=== PATIENT | female | born 1985 ===

== ENCOUNTER 2017-10-19 19:16 | Emergency (ER) | payer BC, MEDICAID ==
[2017-10-19 19:52] VITALS: RESP 16; O2SAT 100
[2017-10-19] MEDS ORDERED: Morphine 4 MG/ML VIAL IVP ONE (20:20)
--- NOTE | 2017-10-19 20:46 | ED PDOC ---
"HPI: Abdomen Time Seen by Provider: 10/19/17 20:44 Chief Complaint (Nursing): Abdominal Pain Chief Complaint (Provider): Abdominal Pain History Per: Patient History/Exam Limitations: no limitations Onset/Duration Of Symptoms: Hrs (6) Outside of [place] travel?: No Current Symptoms Are (Timing): Still Present Severity: Moderate Pain Scale Rating Of: 4 Location Of Pain/Discomfort: RLQ, LLQ, Suprapubic Quality Of Discomfort: Sharp, Cramping Associated Symptoms: Fever, Chills, Vomiting, Back Pain. denies: Diarrhea, Loss Of Appetite, Chest Pain, Constipation, Urinary Symptoms Exacerbating Factors: None Alleviating Factors: None Last Bowel Movement: Today Last Menstral Period: September sometime Past Medical History Vital Signs: Last Vital Signs Temp 100.3 F H 10/19/17 22:25 Pulse 118 H 10/19/17 19:51 Resp 16 10/19/17 19:51 BP 119/79 10/19/17 19:51 Pulse Ox 100 10/20/17 00:54 - Family History Family History: States: No Known Family Hx - Allergies Allergies/Adverse Reactions: Allergies Allergy/AdvReac Type Severity Reaction Status Date / Time No Known Allergies Allergy Verified 10/19/17 19:50 Review of Systems Constitutional: Positive for: Fever, Chills Gastrointestinal: Positive for: Nausea, Vomiting, Abdominal Pain. Negative for : Diarrhea, Constipation, Hematochezia, Hematemesis Genitourinary Female: Positive for: Pelvic Pain Physical Exam - Reviewed Nursing Documentation Reviewed: Yes Vital Signs Reviewed: Yes - Physical Exam Appears: Positive for: Uncomfortable Head Exam: Positive for: ATRAUMATIC, NORMAL INSPECTION, NORMOCEPHALIC Neck: Positive for: Normal, Painless ROM, Supple Cardiovascular/Chest: Positive for: Chest Non Tender, Tachycardia (regular rythmn). Negative for: Edema, Gallop Respiratory: Positive for: Normal Breath Sounds. Negative for: Accessory Muscle Use, Crackles, Rales, Rhonchi, Stridor, Wheezing, Respiratory Distress Pulses-Carotid (L): 2+ Pulses-Carotid (R): 2+ Pulses-Dorsalis Pedis (L): 2+ Pulses-Dorsalis Pedis (R): 2+ Pulses-Radial (L): 2+ Pulses-Radial (R): 2+ Gastrointestinal/Abdominal: Positive for: Bowel Sounds, Tenderness (right upper and right lower quadrant tnderness; tender at [place] point with positive rovsing and merckle signs), Rebound. Negative for: Distended, Guarding, Asicites - Laboratory Results Result Diagrams: 10/19/17 21:44 10/19/17 21:44 - ECG O2 Sat by Pulse Oximetry: 100 - Progress ED Course And Treament: fluids ct abdomen and pelvis morphine 4mg reglan 10mg cbc cmp liver eval lipase ua Medical Decision Making Medical Decision Making: R/o acute abdomen >> gas Consult with Dr Jose Lopez indicated that the patient should be discharged with close follow up with her EXTRUSION PRESS OPERATOR CT EXAM: CT Abdomen and Pelvis With Intravenous Contrast CLINICAL HISTORY: 32 years old, female; Pain; Abdominal pain; Acute; Additional info: R/O acute abdomen TECHNIQUE: Axial computed tomography images of the abdomen and pelvis with intravenous contrast. All CT scans at this facility use one or more dose reduction techniques, viz.: automated exposure control; ma/kV adjustment per patient size (including targeted exams where dose is matched to indication; i.e. head); or iterative reconstruction technique. Coronal and sagittal reformatted images were created and reviewed. CONTRAST: 95 mL of OMNIPAQUE-300 administered intravenously. COMPARISON: No relevant prior studies available. FINDINGS: Limitations: Motion artifact - mild. Lower thorax: No acute findings. ABDOMEN: Liver: < 0.5 cm lesion. Gallbladder and bile ducts: No calcified stones. No ductal dilation. Pancreas: No ductal dilation. No mass. Spleen: No splenomegaly. Adrenals: No mass. Kidneys and ureters: No mass. No hydronephrosis. Stomach and bowel: No definite mural thickening. No obstruction. Appendix: Borderline enlarged appendix, 6-7 mm in diameter. No definite associated inflammatory stranding. PELVIS: Bladder: Unremarkable. Reproductive: Retroverted uterus. IUD. 2.6 x 1.8 x 2.4 cm hypodense lesion within RIGHT ovary. ABDOMEN and PELVIS: SAVI ROBERTS | Final Radiology Report CONFIDENTIALITY STATEMENT This report is intended only for use by the referring physician, and only in accordance with law. If you received this in error, call [phone]. Page 2 of 2 Intraperitoneal space: No significant fluid collection. No free air. Bones/joints: Probable bone islands. No acute fracture. Mild disc bulges lower lumbar spine. Soft tissues: Tiny umbilical hernia containing fat. Vasculature: Unremarkable. No aneurysm. Lymph nodes: No pathologically enlarged lymph nodes. IMPRESSION: 1. Probable RIGHT ovarian cyst. Consider ultrasound. 2. Borderline enlarged appendix. No definite inflammation. Clinical correlation is needed. 3. Liver lesion. For patients with low to average risk of malignancy, no further follow-up is necessary. For patients with high risk of malignancy (known malignancy that can metastasize or other risk factors), recommend follow-up abdominal CT or MR in 6 months. 4. Incidental/non-acute findings are described above. Thank you for allowing us to participate in the care of your patient. Dictated and Authenticated by: Clay Hernandez MD 10/19/2017 11:01 PM Eastern Time ([place] & [place]) [facility] Preliminary Radiology Report Call: [phone] assistance Online chat: [email or web address] Patient Name: SAVI ROBERTS (Age): 1985 32 Gender: F Date of Exam: 10/19/2017 Referring Physician: Dieudonne Weaver # of Images: 38 Ordered As: US TRANSVAGINAL NON-OB INTERNAL REVENUE AGENT (QA) DISCREPANCY? If there is a discrepancy between the preliminary and final interpretation, please notify [employer] via [email or web address]. If you do not have access to our QA portal, call our QA team at [phone] CONFIDENTIALITY STATEMENT This report is intended only for the use of the referring physician, and only in accordance with law, If you received this in error, call [phone] Page 1 of 1 EXAM: US Pelvis, Transvaginal CLINICAL HISTORY: 32 years old, female; Pain; Pelvic pain; Additional info: R/O torsion, ruptured cyst TECHNIQUE: Real-time transvaginal pelvic ultrasound (complete) with image documentation. Transvaginal imaging was used for better evaluation of the endometrium and adnexa. COMPARISON: CT - ABD PELVIS IV CONTRAST ONLY 2017-10-19 22:35 FINDINGS: Uterus/cervix: Retroverted uterus. No myometrial mass. Endometrium: 0.3 cm in thickness. IUD in place. Right ovary: 2.5 x 2.7 x 2.3 cm anechoic lesion. Normal flow. Left ovary: No mass. Normal flow. Free fluid: Small free fluid within pelvis. IMPRESSION: 1. No definite sonographic evidence of ovarian torsion. 2. RIGHT ovarian cyst. 3. Incidental/non-acute findings are described above. Thank you for allowing us to participate in the care of your patient. Dictated and Authenticated by: Clay Hernandez MD 10/20/2017 12:12 AM Eastern Time ([place] & [place]) Disposition - Clinical Impression Clinical Impression: Ovarian cyst - Patient ED Disposition Is Patient to be Admitted: No Doctor Will See Patient In The: Office Counseled Patient/Family Regarding: Studies Performed, Diagnosis, Need For Followup, Rx Given - Disposition Referrals: [facility] [Outside] Nanette Al MD [Non-Staff] - Disposition: Routine/Home Disposition Time: 00:59 Condition: GOOD Additional Instructions: Follow up with your Primary physician, or the health clinic referred to you below Follow up with your EXTRUSION PRESS OPERATOR, or the health clinic referred to anmol manuel Forms: [employer] (Serbian)"
[2017-10-19] MEDS ORDERED: Morphine 4 MG/ML VIAL ONE (21:18)
[2017-10-19] MEDS: Sodium Chloride 0.9% 1,000 ML IV SCH ×3 (21:34→22:57)
[2017-10-19 21:55] LABS: BASO % 0.4 % (0.0-2.0); EOS % 0.2 % (0.0-4.0); HEMOGLOBIN 13.7 g/dL (12.0-16.0); LYMPH # 1.4 K/uL (1.0-4.3); LYMPH % 14.2 % (20.0-40.0); MEAN CELL VOLUME 87.7 fl (81.0-99.0); MEAN CORPUSCULAR HEMOGLOBIN 29.6 pg (27.0-31.0); MEAN CORPUSCULAR HGB CONC 33.8 g/dL (33.0-37.0); MEAN PLATELET VOLUME 9.4 fl (7.2-11.7); MONO # 0.7 K/uL (0.0-0.8); MONO % 7.1 % (0.0-10.0); NEUT % 78.1 % (50.0-75.0); NRBC % 0.1 % (0.0-0.0); RBC 4.64 Mil/uL (3.80-5.20); RED CELL DISTRIBUTION WIDTH 13.5 % (11.5-14.5); WHITE BLOOD COUNT 10.2 K/uL (4.8-10.8)
[2017-10-19 21:56] LABS: SQUAMOUS EPITHIAL 4 /hpf (0-5); URINE BACTERIA OCC (<OCC); URINE BILIRUBIN NEGATIVE (NEGATIVE); URINE BLOOD NEGATIVE (NEGATIVE); URINE CLARITY SLIGHTY-CLOUDY (Clear); URINE COLOR YELLOW (YELLOW); URINE GLUCOSE (UA) NEG (Normal); URINE LEUKOCYTE ESTERASE NEG Leu/uL (Negative); URINE PROTEIN NEGATIVE (NEGATIVE)
[2017-10-19 22:02] LABS: ALB/GLOB RATIO 1.1 (1.0-2.1); ALBUMIN 4.2 g/dL (3.5-5.0); ALT/SGPT 30 U/L (9-52); AST/SGOT 18 U/L (14-36); BILIRUBIN,DIRECT 0.3 mg/ml (0.0-0.4); BLOOD UREA NITROGEN 9 mg/dl (7-17); CALCIUM 9.5 mg/dL (8.4-10.2); GFR AFRICAN-AMERICAN > 60; GFR NON-AFRICAN AMERICAN > 60; LIPASE 72 U/L (23-300)
[2017-10-19] MEDS ORDERED: Sodium Chloride 0.9% 100 ML ONE (22:21)
[2017-10-19] MEDS ORDERED: Iohexol 300 100 ML IJ ONE (22:21)
--- NOTE | 2017-10-19 23:01 | CT ---
EXAM: CT Abdomen and Pelvis With Intravenous Contrast CLINICAL HISTORY: 32 years old, female; Pain; Abdominal pain; Acute; Additional info: R/O acute abdomen TECHNIQUE: Axial computed tomography images of the abdomen and pelvis with intravenous contrast. All CT scans at this facility use one or more dose reduction techniques, viz.: automated exposure control; ma/kV adjustment per patient size (including targeted exams where dose is matched to indication; i.e. head); or iterative reconstruction technique. Coronal and sagittal reformatted images were created and reviewed. CONTRAST: 95 mL of OMNIPAQUE-300 administered intravenously. COMPARISON: No relevant prior studies available. FINDINGS: Limitations: Motion artifact - mild. Lower thorax: No acute findings. ABDOMEN: Liver: < 0.5 cm lesion. Gallbladder and bile ducts: No calcified stones. No ductal dilation. Pancreas: No ductal dilation. No mass. Spleen: No splenomegaly. Adrenals: No mass. Kidneys and ureters: No mass. No hydronephrosis. Stomach and bowel: No definite mural thickening. No obstruction. Appendix: Borderline enlarged appendix, 6-7 mm in diameter. No definite associated inflammatory stranding. PELVIS: Bladder: Unremarkable. Reproductive: Retroverted uterus. IUD. 2.6 x 1.8 x 2.4 cm hypodense lesion within RIGHT ovary. ABDOMEN and PELVIS: Intraperitoneal space: No significant fluid collection. No free air. Bones/joints: Probable bone islands. No acute fracture. Mild disc bulges lower lumbar spine. Soft tissues: Tiny umbilical hernia containing fat. Vasculature: Unremarkable. No aneurysm. Lymph nodes: No pathologically enlarged lymph nodes. IMPRESSION: 1. Probable RIGHT ovarian cyst. Consider ultrasound. 2. Borderline enlarged appendix. No definite inflammation. Clinical correlation is needed. 3. Liver lesion. For patients with low to average risk of malignancy, no further follow-up is necessary. For patients with high risk of malignancy (known malignancy that can metastasize or other risk factors), recommend follow-up abdominal CT or MR in 6 months. 4. Incidental/non-acute findings are described above.
[2017-10-20] MEDS: Sodium Chloride 0.9% 1,000 ML IV SCH (00:20)
--- NOTE | 2017-10-20 00:46 | CP.PCM.CON ---
History of Present Illness - History of Present Illness History of Present Illness: General Surgery Consult Note for Dr. Garcia Reason for consult: lower abdominal pain 32 F with no significant PMH presents to [facility] for complaint of lower abdominal pain. Patient was seen and evaluated in the ED. Patient states that she has had pain since 7 am Saturday morning. She reports that she has had similar pain present for about 3 months. She states that pain has been intermittent for that time frame. For this episode, patient was at home when the pain started and it continued to get progressively worse. She rate pain as moderate. She describes pain as constant and sharp in lower abdomen bilaterally being worse in RLQ. She admits to one episode of nausea/vomiting (NBNB) earlier. She denies any specific exacerbating or alleviating factors. Denies fever/chills, chest pain, sob, palpitations, diarrhea, recent illness or sick contacts. PMD: denies PMH: Denies Meds: denies Allergy: NKDA PSH: denies FH: non-contributory Social: denies tobacco/illicit drug use, occasional EtOH use, Review of Systems - Review of Systems All systems: reviewed and no additional remarkable complaints except (12 point ROS performed and found to be negative unless otherwise stated in HPI) Past Patient History - Past Social History Smoking Status: Never Smoked - PSYCHIATRIC Hx Substance Use: No - SURGICAL HISTORY Hx Surgeries: No Meds Home Medications: Home Medication List Medication Instructions Recorded Confirmed Type oxyCODONE/Acetaminophen [Percocet 1 ea PO QID #16 tab 10/20/17 Rx 5/325 mg Tab] Allergies/Adverse Reactions: Allergies Allergy/AdvReac Type Severity Reaction Status Date / Time No Known Allergies Allergy Verified 10/19/17 19:50 - Medications Medications: Current Medications Sodium Chloride (Sodium Chloride 0.9%) 1,000 mls @ 1,000 mls/hr IV .Q1H SABINE Stop: 10/20/17 20:18 Last Admin: 10/20/17 00:20 Dose: Not Given Physical Exam - Constitutional Appears: Non-toxic, No Acute Distress - Head Exam Head Exam: ATRAUMATIC, NORMOCEPHALIC - Eye Exam Eye Exam: EOMI, Normal appearance Pupil Exam: PERRL - ENT Exam ENT Exam: Mucous Membranes Moist - Neck Exam Neck exam: Negative for: Tenderness - Respiratory Exam Respiratory Exam: NORMAL BREATHING PATTERN - Cardiovascular Exam Cardiovascular Exam: REGULAR RHYTHM - GI/Abdominal Exam GI & Abdominal Exam: Normal Bowel Sounds, Soft, Tenderness (lower abdomen, RLQ> LLQ). absent: Distended, Firm, Guarding, Hernia, Rebound, Rigid - Extremities Exam Extremities exam: Positive for: normal capillary refill, pedal pulses present. Negative for: calf tenderness - Back Exam Back exam: absent: CVA tenderness (L), CVA tenderness (R) - Neurological Exam Neurological exam: Alert, CN II-XII Intact, Oriented x3 - Psychiatric Exam Psychiatric exam: Normal Affect, Normal Mood - Skin Skin Exam: Dry, Intact, Normal Color, Warm Results - Vital Signs Recent Vital Signs: Last Vital Signs Temp 100.3 F H 10/19/17 22:25 Pulse 118 H 10/19/17 19:51 Resp 16 10/19/17 19:51 BP 119/79 10/19/17 19:51 Pulse Ox 100 10/19/17 20:50 - Labs Result Diagrams: 10/19/17 21:44 10/19/17 21:44 Labs: Laboratory Results - last 24 hr 10/19/17 10/19/17 10/19/17 21:44 21:44 21:44 WBC 10.2 RBC 4.64 Hgb 13.7 Hct 40.6 MCV 87.7 MCH 29.6 MCHC 33.8 RDW 13.5 Plt Count 199 MPV 9.4 Neut % (Auto) 78.1 H Lymph % (Auto) 14.2 L [place] % (Auto) 7.1 Eos % (Auto) 0.2 Baso % (Auto) 0.4 Neut # (Auto) 8.0 H Lymph # (Auto) 1.4 [place] # (Auto) 0.7 Eos # (Auto) 0.0 Baso # (Auto) 0.0 Sodium 139 Potassium 3.2 L Chloride 101 Carbon Dioxide 24 Anion Gap 17 BUN 9 Creatinine 0.6 L Est GFR ( Amer) > 60 Est GFR (Non-Af Amer) > 60 Random Glucose 94 Calcium 9.5 Total Bilirubin 1.1 Direct Bilirubin 0.3 AST 18 ALT 30 Alkaline Phosphatase 63 Troponin I < 0.0120 Total Protein 8.1 Albumin 4.2 Globulin 4.0 H Albumin/Globulin Ratio 1.1 Lipase 72 Urine Color Yellow Urine Clarity Slighty-cloudy Urine pH 7.0 Ur Specific [place] 1.023 Urine Protein Negative Urine Glucose (UA) Neg Urine Ketones 80 Urine Blood Negative Urine Nitrate Negative Urine Bilirubin Negative Urine Urobilinogen 4.0 H Ur Leukocyte Esterase Neg Urine RBC (Auto) 5 H Urine Microscopic WBC 1 Ur Squamous Epith Cells 4 Urine Bacteria Occ H Assessment & Plan - Assessment and Plan (Free Text) Plan: 32 F with lower abdominal pain -CT shows Right ovarian cyst, confirmed by Transvaginal US (complex cyst; see full report) -Recommend LOAD BLOCKER evaluation -No surgical intervention needed at this time from our standpoint -Discussed with Dr. Jose Manriquez PGY1
[2017-10-20] MEDS ORDERED: Oxycodone/Acetaminophen 5/325 mg Tab PO ONE (01:16)
[2017-10-20 01:27] VITALS: BP 156/82; PULSE 101; TEMP 98.9
--- NOTE | 2017-10-20 11:07 | US ---
HISTORY: Rule out torsion,, ruptured cyst COMPARISON: None available. TECHNIQUE: Transvaginal sonographic evaluation of the pelvis performed. FINDINGS: UTERUS: The uterus is retroverted measuring approximate 7.3 x 6.2 x 4.6 cm. Normal in size and appearance. No fibroid or other mass lesion seen. ENDOMETRIUM: Measures 3 mm in diameter. In situ echogenic IUD CERVIX: No cervical abnormality identified. RIGHT OVARY: Measures 3.5 x 4.2 x 2.7 cm. There is a complex appearing cyst that measures approximately 2.7 x 2.5 x 2.3. Normal flow. LEFT OVARY: Measures 3.6 x 2.6 x 2.0 cm. No solid mass. Normal flow. FREE FLUID: Small amount of free fluid is present within the pelvis OTHER FINDINGS: None. IMPRESSION: In situ IUD. Complex right ovarian cyst. There is a small amount of free fluid posterior to the uterus. Recommend follow-up ultrasound during the next menstrual cycle to assess for resolution. Preliminary report provided by [facility]ology service
== END 2017-10-20 01:20 | disposition home or self-care (01) ==
LOC: H.ER 19:16
DX: N83.201 Unspecified ovarian cyst, right side (principal); K76.9 Liver disease, unspecified
CPT/HCPCS: 74177; 76830; 80053; 81003; 81025; 82248; 83690; 84484; 85025; 96374; 96375; 99284; J2270; J2765; J7040; Q9967